=== PATIENT | male | born 1960 | race Caucasian/White ===

== ENCOUNTER 2019-08-19 10:44 | Outpatient (REF) | payer BC, SELFPAY ==
[2019-08-19 12:58] LABS: Anion Gap 9.7 mmol/L (3-11); BUN 10 mg/dL (7-18); CO2 31.3 mmol/L (21.0-32.0); CREATININE 1.01 mg/dL (0.70-1.30); Calcium 9.6 mg/dL (8.5-10.1); Chloride 98 mmol/L (98-107); Glucose 91 mg/dL (70-100); Potassium 3.7 mmol/L (3.5-5.1); Sodium 139 mmol/L (136-145)
== END 2019-08-19 11:04 ==
LOC: NCHCN 10:44
PROVIDERS: PCP Internal Medicine; Visit Provider Internal Medicine
DX: I10 Essential (primary) hypertension (principal)
CPT/HCPCS: 80048

== ENCOUNTER 2019-09-07 00:52 | Outpatient (CLI) | payer BC, SELFPAY ==
--- NOTE | 2019-09-07 07:30 | DI.US_ITS ---
APPROVED REPORT EXAM: Comprehensive 2D, Doppler, and color-flow Echocardiogram Patient Location: Out-Patient Cook Fry: Nuzhat Brandt [facility] ([place]) Rhythm: NSR Indications: ascending aortic aneurysm i71.2 Conclusion Left Ventricle : The left ventricle is top normal size. Mild left ventricular hypertrophy. The left v entricular systolic function is normal. There is normal LV segmental wall motion. The left ventricul ar diastolic function is normal. LVEF is estimated to be 60-65%. Right Ventricle : Right ventricle is generous in size. The right ventricular systolic function appear s normal. Atria : The left atrium size is normal. The right atrium size is normal. Aortic Valve : Aortic valve is trileaflet. Trace aortic regurgitation. There is no significant aortic valvular stenosis. Mitral Valve : The mitral valve opens well. Mild mitral regurgitation. No evidence of mitral valve st enosis. Tricuspid Valve : Tricuspid valve leaflets are very mildly thickened but open well. Mild tricuspid re gurgitation. Great Vessels : The ascending aorta is mildly dilated at 4.3-4.4 cm. The IVC appears mildly dilated, but seems to collapse more than 50%. The estimated RVSP is 27-30 mmHg. Compared to echocardiogram dated 01/13/2018, there is no significant change. Wall motion Left Ventricle The left ventricle is top normal size. The left ventricular systolic function is normal. Mild left ve ntricular hypertrophy. There is normal LV segmental wall motion. The left ventricular diastolic funct ion is normal. LVEF is estimated to be 60-65%. Right Ventricle Right ventricle is generous in size. The right ventricular systolic function appears normal. Atria The left atrium size is normal. The right atrium size is normal. Aortic Valve Aortic valve is trileaflet. There is no significant aortic valvular stenosis. Trace aortic regurgitat ion. Mitral Valve The mitral valve opens well. No evidence of mitral valve stenosis. Mild mitral regurgitation. Tricuspid Valve Tricuspid valve leaflets are very mildly thickened but open well. Mild tricuspid regurgitation. Pulmonic Valve Trace pulmonic regurgitation. Great Vessels The aortic root is normal in size. The ascending aorta is mildly dilated at 4.3 cm. The IVC appears m ildly dilated, but seems to collapse more than 50%. The estimated RVSP is 27-30 mmHg. Pericardium Prominent anterior epicardial fat pad is present. 2D Dimensions IVSd 1.35 cm M: 0.6-1.2 LV EDV A2C 60.70 mL PWd 1.10 cm M: 0.6 - 1.2 LV EDV A4C 77.90 mL LVDd 5.55 cm M: 4.2 - 5.8 LA Volume Index A2C 30.93 mL/m2 LVDs 3.60 cm M: 2.5 - 4.0 LA Volume Index A4C 26.96 mL/m2 Aortic Root 3.40 cm M: 3.1 - 3.7 LA Volume Index Biplane 31.11 mL/m2 RA Area A4C 17.39 cm2 LA Area A4C 19.00 cm2 LVOT 1.95 cm (M/F) 1.5-2.5 LA Area A2C 21.93 cm2 Ascending Aorta 4.34 cm M: 2.6 - 3.4 EF AP4 61.10 % LVEF (Teich) 63.12 % EF AP2 58.81 % LVEF (Gomez's) 60.16 % M: 52 - 72 EF BP 60.16 % LV Volume 51.96 mL M: 62 - 150 LV Volume Index 23.94 mL/m2 M: 34 - 74 FS 34.60 % LV Diastology E/A Ratio 0.9 MED E' 0.09 (>0.07 m/s) LV E/e MED 9.35 (<14) LAT E' 0.11 (>0.1 m/s) LV E/e LAT 7.55 (<14) Aortic Valve LVOT Area 3.03 cm2 LVOT Peak Jose Eduardo. 1.25 m/s LVOT Mean Jose Eduardo. 0.77 m/s LVOT Peak Gr. 6.60 mmHg NAZARIO Vmax Index 1.08 cm2/m2 LVOT Mean Gr. 2.90 mmHg LVOT VTI 0.25 m NAZARIO Mean Jose Eduardo. Index 0.96 cm2/m2 AoV Peak Jose Eduardo. 1.66 (0.5-1.3 m/s) AoV Mean Jose Eduardo. 1.11 m/s AO Peak GR. 11.05 mmHg AO Mean GR. 5.57 (<5 mmHg) VTI Ratio 0.84 NAZARIO (VTI) 2.56 (2.5-4.5 cm2) NAZARIO (VTI) Index 1.18 cm/m2 Mitral Valve MV E Max Jose Eduardo. 0.82 (0.4-1.3 m/s) MV A Velocity 0.90 (0.4-1.3 m/s) E/A Ratio 0.89 MV Decel. Time 204.45 (160-240 msec) MV PHT 59.30 msec MVA PHT 3.70 cm2 Tricuspid Valve TR P. Velocity 2.59 m/s TV Regurg Vmax 2.59 m/s RAP Estimate 8.00 mmHg RVSP 36.00 mmHg TR P. Gradient 26.85 mmHg
== END 2019-09-07 01:12 ==
PROVIDERS: PCP Internal Medicine; Visit Provider Internal Medicine
DX: I71.2 Thoracic aortic aneurysm, without rupture (principal); R07.9 Chest pain, unspecified; R00.0 Tachycardia, unspecified; I10 Essential (primary) hypertension; I35.1 Nonrheumatic aortic (valve) insufficiency
CPT/HCPCS: 93306

== ENCOUNTER 2020-09-11 10:19 | Outpatient (REF) | payer BC, SELFPAY ==
[2020-09-11 21:07] LABS: Anion Gap 7.2 mmol/L (3-11); BUN 10 mg/dL (7-18); CO2 30.8 mmol/L (21.0-32.0); CREATININE 1.14 mg/dL (0.70-1.30); Calcium 9.5 mg/dL (8.5-10.1); Chloride 100 mmol/L (98-107); Glucose 107 mg/dL (74-106); Sodium 138 mmol/L (136-145)
[2020-09-11 21:30] LABS: Hemoglobin A1C 5.3 % (<5.7)
== END 2020-09-11 10:39 ==
LOC: NCHCN 10:19
PROVIDERS: PCP Internal Medicine; Visit Provider Internal Medicine
DX: R73.03 Prediabetes (principal); I10 Essential (primary) hypertension
CPT/HCPCS: 80048; 83036

== ENCOUNTER 2020-09-27 00:20 | Outpatient (CLI) | payer BC, SELFPAY ==
--- NOTE | 2020-09-27 07:27 | DI.US_ITS ---
APPROVED REPORT EXAM: Comprehensive 2D, Doppler, and color-flow Echocardiogram Patient Location: Out-Patient Consulting Manager: Ofelia Joseph RDCS ([place]) Indications: Ascending aortic aneurysm Other Information Study Quality: Fair Conclusion Left Ventricle : The left ventricle is normal size. The left ventricular systolic function is normal. The left ventricular ejection fraction is within the normal range. There is normal left ventricular wall thickness. There is normal LV segmental wall motion. The left ventricular diastolic function is normal. LVEF is 55%. Right Ventricle : The right ventricle is normal size. The right ventricular systolic function is norm al. The RVSP is 27.1mmHg. Valves: There are no hemodynamically significant valvular lesions. Great Vessels : The aortic root is normal in size. The ascending aorta is dilated (4.4cm). Aortic arc h is normal in caliber. IVC is normal in size and collapses >50% with inspiration. Compared to study from 09/07/2019, there is no significant change. Wall motion Left Ventricle The left ventricle is normal size. The left ventricular systolic function is normal. The left ventric ular ejection fraction is within the normal range. There is normal left ventricular wall thickness. T here is normal LV segmental wall motion. The left ventricular diastolic function is normal. There is no ventricular septal defect visualized. LVEF is 55%. Right Ventricle The right ventricle is normal size. The right ventricular systolic function is normal. The RVSP is 27 .1mmHg. Atria The left atrium size is normal. The right atrium size is normal. The interatrial septum is intact wit h no evidence for an atrial septal defect. Aortic Valve The aortic valve is normal in structure. Aortic valve is trileaflet. There is no aortic valvular sten osis. No aortic regurgitation is present. Mitral Valve The mitral valve is normal in structure. No evidence of mitral valve stenosis. Trace to mild mitral r egurgitation. Tricuspid Valve The tricuspid valve is normal in structure. There is no tricuspid valve stenosis. Mild tricuspid regu rgitation. Pulmonic Valve The pulmonary valve is normal in structure. There is no pulmonic valvular stenosis. There is no pulmo libby valvular regurgitation. Great Vessels The aortic root is normal in size. The ascending aorta is dilated (4.4cm). Aortic arch is normal in c aliber. IVC is normal in size and collapses >50% with inspiration. Pericardium There is no pericardial effusion. 2D Dimensions IVSD d PLAX 1.15 cm M: 0.6-1.2 LV Vol A2C d MOD 119.2 mL LVPW d PLAX 1.11 cm M: 0.6 - 1.2 LV Vol A4C d MOD 134.8 mL LVID d PLAX 4.93 cm M: 4.2 - 5.8 LA vol/ BSA A2C s A-L 26.1 mL/m2 LVDs 3.45 cm M: 2.5 - 4.0 LA vol/ BSA A4C s A-L 20.6 mL/m2 Ao Root d 3.37 cm M: 3.1 - 3.7 LA Vol/ BSA Biplane s A-L 23.7 mL/m2 RA Area A4C 14.14 cm2 LA Area A4C s MOD 16.71 cm2 RA Vol/ BSA A4C s A-L 15.3 mL/m2 LA Area A2C s MOD 19.20 cm2 Ao Asc Diam d 4.41 cm M: 2.6 - 3.4 LV EF A4C MOD 55.1 % LV EF Teichholz 56.4 % LV EF A2C MOD 55.9 % LVEF (Gomez's) 55.64 % M: 52 - 72 LV EF Biplane MOD 55.6 % LV Volume 92.68 mL M: 62 - 150 SV 71.05 mL LV Volume Index 41.93 mL/m2 M: 34 - 74 SV Index 32.08 mL/m2 LV Vol Biplane MOD 127.7 mL FS 29.50 % M-Mode TAPSE 2.65 cm (M/F) >1.7 LV Diastology MV E' medial 0.097 (>0.07 m/s) E/A Ratio 1.0 LV E/e MED 8.35 (<14) MV E Vmax 0.81 (0.4-1.3 m/s) MV E' lateral 0.090 (>0.1 m/s) MV A Vmax 0.80 (0.4-1.3 m/s) LV E/e LAT 8.90 (<14) MV E/A Ratio 0.98 MV E/E' medial 8.35 MV E/E' lateral 8.92 Aortic Valve LVOT Area 3.66 cm2 AoV Area Vmax 3.05 cm2 LVOT Vmax 1.28 m/s AoV Area/ BSA (Vmax) 1.38 cm2/m2 LVOT Mean Jose Eduardo. 0.76 m/s NAZARIO Mean Jose Eduardo. 2.70 cm2 LVOT Peak Grad 6.5 mmHg NAZARIO Mean Jose Eduardo. Index 1.22 cm2/m2 LVOT Mean Grad 2.9 mmHg LVOT VTI 0.224 m LVOT Diam s 2.15 cm AoV Vmax 1.53 m/s Velocity Ratio 0.83 AoV Mean Jose Eduardo. 1.03 m/s AoV Peak Grad 9.4 mmHg LVOT SV 81.93 mL AoV Mean Grad 4.8 mmHg AoV VTI 0.273 m AoV Area VTI 3.00 cm2 AoV Area/ BSA (VTI) 1.35 cm/m2 Mitral Valve MV DT 204 (160-240 msec) MV PHT 59 msec MV Area PHT 3.71 cm2 MV VTI 0.269 m MV Area VTI 3.05 (4.0-6.0 cm2) Pulmonary Valve PV Vmax 1.07 (0.5-1.5 m/s) RVOT Peak Gr. 2.94 mmHg PV Peak Grad 4.6 mmHg RVOT Mean Gr. 1.55 mmHg PV Mean Grad 2.5 mmHg RVOT VTI 0.165 m PV VTI 0.213 m RVOT Vmax 0.86 m/s Tricuspid Valve TR Peak Grad 24.1 mmHg TR Vmax 2.46 m/s RA Pressure 3.00 mmHg RVSP (TR) 27.1 mmHg
== END 2020-09-27 00:40 ==
PROVIDERS: PCP Internal Medicine; Visit Provider Internal Medicine
DX: I77.810 Thoracic aortic ectasia (principal)
CPT/HCPCS: 93306

== ENCOUNTER 2021-03-06 10:56 | Outpatient (REF) | payer BC, SELFPAY ==
[2021-03-06 14:45] LABS: Hemoglobin A1C 5.4 % (<5.7)
[2021-03-06 15:09] LABS: Anion Gap 6.7 mmol/L (3-11); BUN 10 mg/dL (7-18); CO2 34.3 mmol/L (21.0-32.0); Calcium 9.6 mg/dL (8.5-10.1); Chloride 102 mmol/L (98-107); Glucose 105 mg/dL (74-106); Potassium 3.9 mmol/L (3.5-5.1); Sodium 143 mmol/L (136-145); TSH 1.39 uIU/mL (0.36-3.74); Vitamin B12 269 pg/mL (193-986)
[2021-03-07 12:12] LABS: Albumin 62.6 % (55.8-66.1); Total Protein 6.8 g/dL (6.3-8.2)
== END 2021-03-06 10:57 | disposition home or self-care (01) ==
LOC: NCHCN 10:56
PROVIDERS: PCP Internal Medicine; Visit Provider Internal Medicine
DX: G62.9 Polyneuropathy, unspecified (principal); I10 Essential (primary) hypertension; Z85.038 Personal history of other malignant neoplasm of large intestine; Z13.1 Encounter for screening for diabetes mellitus
CPT/HCPCS: 80048; 82607; 83036; 84165; 84443

== ENCOUNTER 2021-10-24 01:08 | Outpatient (CLI) | payer BC, SELFPAY ==
--- NOTE | 2021-10-24 | DI.US_ITS ---
APPROVED REPORT EXAM: Comprehensive 2D, Doppler, and color-flow Echocardiogram Patient Location: Out-Patient Headwaiter/Headwaitress: Ofelia Joseph RDCS ([place]) Indications: Ascending aortic aneurysm Other Information Study Quality: Adequate Conclusion Left Ventricle : The left ventricle is normal size. The left ventricular systolic function is normal. The left ventricular ejection fraction is within the normal range. There is normal left ventricular wall thickness. There is normal LV segmental wall motion. The left ventricular diastolic function is normal. LVEF is 55%. Right Ventricle : Right ventricle is grossly normal in size. The right ventricular systolic function is normal. The RVSP is 27.2mmHg. Atria : The left atrium size is normal. The right atrium size is normal. Mitral Valve : Mild mitral annular calcification. Mild mitral regurgitation. No evidence of mitral va lve stenosis. Great Vessels : The aortic root is normal in size. The ascending aorta is moderately dilated (4.5cm). Aortic arch is normal in caliber. IVC is normal in size and collapses >50% with inspiration. Wall motion Left Ventricle The left ventricle is normal size. The left ventricular systolic function is normal. The left ventric ular ejection fraction is within the normal range. There is normal left ventricular wall thickness. T here is normal LV segmental wall motion. The left ventricular diastolic function is normal. There is no ventricular septal defect visualized. LVEF is 55%. Right Ventricle Right ventricle is grossly normal in size. The right ventricular systolic function is normal. The RVS P is 27.2mmHg. Atria The left atrium size is normal. The right atrium size is normal. The interatrial septum is intact wit h no evidence for an atrial septal defect. Aortic Valve The Aortic valve is sclerotic. Aortic valve is trileaflet. There is no aortic valvular stenosis. No a ortic regurgitation is present. Mitral Valve Mild mitral annular calcification. No evidence of mitral valve stenosis. Mild mitral regurgitation. Tricuspid Valve The tricuspid valve is normal in structure. There is no tricuspid valve stenosis. Mild tricuspid regu rgitation. Pulmonic Valve The pulmonary valve is normal in structure. There is no pulmonic valvular stenosis. There is no pulmo libby valvular regurgitation. Great Vessels The aortic root is normal in size. The ascending aorta is moderately dilated (4.5cm). Aortic arch is normal in caliber. IVC is normal in size and collapses >50% with inspiration. Pericardium There is no pericardial effusion. 2D Dimensions IVSD d PLAX 1.10 cm M: 0.6-1.2 LV Vol A2C d MOD 110.2 mL LVPW d PLAX 1.14 cm M: 0.6 - 1.2 LV Vol A4C d MOD 116.7 mL LVID d PLAX 4.90 cm M: 4.2 - 5.8 LA vol/ BSA A2C s A-L 28.1 mL/m2 LVDs 3.35 cm M: 2.5 - 4.0 LA Area A2C s MOD 21.27 cm2 Ao Root d 3.28 cm M: 3.1 - 3.7 LV EF A4C MOD 55.1 % Ao Asc Diam d 4.48 cm M: 2.6 - 3.4 LV EF A2C MOD 55.4 % LV EF Teichholz 58.1 % LV EF Biplane MOD 55.5 % LVEF (Gomez's) 55.52 % M: 52 - 72 SV 64.21 mL LV Volume 83.93 mL M: 62 - 150 SV Index 28.99 mL/m2 LV Volume Index 37.97 mL/m2 M: 34 - 74 LV Vol Biplane MOD 115.7 mL FS 30.70 % M-Mode TAPSE 2.66 cm (M/F) >1.7 LV Diastology MV E' medial 0.082 (>0.07 m/s) E/A Ratio 1.1 LV E/e MED 11.10 (<14) MV E Vmax 0.91 (0.4-1.3 m/s) MV E' lateral 0.110 (>0.1 m/s) MV A Vmax 0.85 (0.4-1.3 m/s) LV E/e LAT 8.25 (<14) MV E/A Ratio 1.02 MV E/E' medial 11.12 MV E/E' lateral 8.28 Aortic Valve LVOT Area 3.57 cm2 AoV Area Vmax 3.22 cm2 LVOT Vmax 1.30 m/s AoV Area/ BSA (Vmax) 1.45 cm2/m2 LVOT Mean Jose Eduardo. 0.77 m/s NAZARIO Mean Jose Eduardo. 2.74 cm2 LVOT Peak Grad 6.7 mmHg NAZARIO Mean Jose Eduardo. Index 1.24 cm2/m2 LVOT Mean Grad 2.9 mmHg LVOT VTI 0.274 m LVOT Diam s 2.10 cm AoV Vmax 1.44 m/s Velocity Ratio 0.90 AoV Mean Jose Eduardo. 1.01 m/s AoV Peak Grad 8.3 mmHg LVOT SV 97.93 mL AoV Mean Grad 4.5 mmHg AoV VTI 0.298 m AoV Area VTI 3.29 cm2 AoV Area/ BSA (VTI) 1.48 cm/m2 Mitral Valve MV DT 198 (160-240 msec) MR Vmax 4.43 m/s MV PHT 57 msec MR VTI 1.388 m MV Area PHT 3.84 cm2 MR Peak Grad 78.6 mmHg MV VTI 0.341 m MR Mean Grad 50.3 mmHg MV VTI Annulus 0.324 m MR PISA Radius 0.35 cm MV Area VTI 2.74 (4.0-6.0 cm2) MR EROA 0.06 cm2 MR Aliasing Velocity 0.35 m/s MR PISA 0.77 cm2 Pulmonary Valve PV Vmax 1.03 (0.5-1.5 m/s) RVOT Peak Gr. 2.66 mmHg PV Peak Grad 4.2 mmHg RVOT Mean Gr. 1.40 mmHg PV Mean Grad 2.0 mmHg RVOT VTI 0.176 m PV VTI 0.197 m RVOT Vmax 0.81 m/s Tricuspid Valve TR Peak Grad 24.2 mmHg TR Vmax 2.46 m/s RA Pressure 3.00 mmHg RVSP (TR) 27.2 mmHg
== END 2021-10-24 01:28 ==
PROVIDERS: PCP Internal Medicine; Visit Provider Family Medicine
DX: I71.2 Thoracic aortic aneurysm, without rupture (principal); I34.0 Nonrheumatic mitral (valve) insufficiency
CPT/HCPCS: 93306

== ENCOUNTER 2021-11-05 03:11 | Outpatient (CLI) | payer BC, SELFPAY ==
[2021-11-05 10:49] LABS: Source Nasal/Nares
[2021-11-06 09:14] LABS: COVID-19 PCR Negative (Negative)
== END 2021-11-05 03:12 | disposition home or self-care (01) ==
PROVIDERS: PCP Internal Medicine; Visit Provider Surgery
DX: Z20.822 Contact with and (suspected) exposure to COVID-19 (principal)
CPT/HCPCS: 87635

== ENCOUNTER 2021-11-07 09:16 | Day surgery (SDC) | payer BC, SELFPAY ==
--- NOTE | 2021-11-06 10:32 | BOWEL_PTH ---
PATIENT: Calvin Morrison LOC: [facility] U#:[id number] AGE/SX: 61/M ROOM: RE11/07/[address]: Janet Martinez MD : [id number] BED: DIS: 11/07/2021 SPEC #: [id number] RECD: 11/07/21 12:33 STATUS: CASI REQ #: [id number] NACHO: 11/06/21 10:[address]: Janet Martinez DEPT: Surgical Specimen RECD BY: Germania Strange ENTERED: 11/07/21 12:33 SP TYPE: Bowel OTHR DR: Min Cantrell Tissues: 1 - BIOPSY BOWEL 2 - BIOPSY BOWEL Procedures: GROSS AND MICRO LEVEL 4 Comments: [id number]
--- NOTE | 2021-11-07 06:22 | W.PREOPHP ---
Assessment and Plan Assessment and plan (1) Screening for colon cancer: Status: Acute Assessment and plan: The patient is here for Colonoscopy pre-op. His last screening was in 2012 and was remarkable for multiple tubular adenoma's. He has no family history of colon cancer. He has not had any bowel habit changes. -Discussed colonoscopy bowel prep as well as the procedure. Discussed possible complications of the procedure to include bleeding, pain, perforation, missed small lesion/polyp, sore throat, aspiration and adverse reaction to the medications. Questions were answered to patient?s satisfaction. No guarantees were implied or given. Will hold aspirin x 5 days prior to his procedure. P// Colonoscopy under sedation (2) Personal history of colon cancer: Status: Acute History of Present Illness Narrative: 61 y/o male with history of rectosigmoid colon cancer (s/p resection, chemotherapy and radiation; 1999), HTN and peripheral neuropathy presents for colonoscopy screening pre-op. His last screening was in 2012, which was remarkable for mutliple tubular adenomas. He denies a family history of colon cancer. He denies any changes in bowel habits including bloody or black tarry stools, abdominal pain, diarrhea or constipation. He denies constitutional symptoms. Denies use of marijuana or any other recreational or illegal drugs. He denies chest pain, palpitations, dyspnea or dyspnea with exertion. He denies prior history or family history of adverse reactions or complications with anesthesia. The patient denies any history of stroke, [place], seizures, bleeding or clotting disorders. He reports having metal implanted in his left knee. No changes in his health since he was seen in the office Review of Systems Cardiovascular Cardiovascular: Denies chest pain, Denies chest pain at rest, Denies irregular heart rhythm, Denies dyspnea and Denies dyspnea on exertion Respiratory Respiratory: Denies cough, Denies dyspnea and Denies dyspnea on exertion Gastrointestinal Gastrointestinal: Reports as per HPI Genitourinary Genitourinary: Denies dysuria, Denies urinary incontinence and Denies urinary urgency Endocrine Endocrine: Reports system reviewed and no additional complaints, except as documented Hematologic/Lymphatic Hematologic/Lymphatic: Denies easy bruising and Denies lymphadenopathy PFSH All Active Problems Screening for colon cancer (Acute) Peripheral neuropathy (Acute) Personal history of colon cancer (Acute) Medical History Ascending aortic aneurysm F/U with PCP, pt states he had an ECHO on 10/24/20, was told things wer status quo and they didn't recommend anything further. Ceruminosis Erectile dysfunction Essential hypertension Former smoker History of rectal cancer Hyperglycemia Hyperlipidemia Obesity rectal cancer rectosigmoid junction Sinus tachycardia Sleep apnea Stress reaction Tubular adenoma Umbilical hernia Surgical History Colectomy Colonoscopy - IV Sedation (~2010) Colostomy placed 06/11/00 reversed 03/31/01 Hernia Repair, Incisional Hx of knee surgery (L) Knee x8 Family History Mother Personal history of malignant neoplasm Social History (Updated 09/24/21 @ 08:06 by AIDEE Nuñez) Smoking/Tobacco Use Status: Former Tobacco Use Quit Date: 10/13/88 Smoking risk assessment performed?: Yes Alcohol Intake: current Alcohol Intake frequency: 0-2 drinks per day Alcohol type: beer Drug use: Never Substance use type: does not use Do you feel safe at home: Yes Additional Social history: lives alone Meds Allergies and Home Medications Allergies Allergy/AdvReac Type Severity Reaction Status Date / Time lisinopril AdvReac Intermediate cough Verified 11/07/21 09:34 Home Medications Medication Instructions Recorded Confirmed Type aspirin [Aspirin Low-Strength] 81 mg PO DAILY tab-cap 05/04/13 11/07/21 History Metoprolol Succinate 25 mg PO DAILY tab-cap NS 05/11/18 11/07/21 History hydrochlorothiazide 37.5 mg PO DAILY tab-cap NS 05/11/18 11/07/21 History losartan 50 mg PO DAILY tab-cap NS 05/11/18 11/07/21 History sildenafil [Viagra] 50 mg PO DAILY tab-cap NS 05/11/18 11/07/21 History bisacodyl 5 mg tablet,delayed 5 mg PO ONCE #4 tab 09/21/21 11/07/21 Rx release polyethylene glycol 3350 17 238 g PO ONCE #238 g 09/21/21 11/07/21 Rx gram/dose oral powder Exam Const General: healthy appearing and comfortable Resp Effort & Inspection: normal respiratory effort Auscultation: clear to auscultation bilaterally Cardio Rate: regular rate Rhythm: regular rhythm Heart Sounds: no click, no gallops and no murmurs
--- NOTE | 2021-11-07 06:24 | COLE_ITS ---
Colonoscopy Report Date of procedure: 11/07/21 Pre-op diagnosis general: Hx of colon cancer and Hx of polyps Post-op diagnosis procedure note: same Procedure: Colonoscopy with polypectomy Surgeon: Janet Martinez Anesthesia Type: General:No Airway (Dada Gonzalez, MORENA) Estimated blood loss (mL): 3 Pathology: other (ascending polyp, sigmoid polyp) Complications: None Disposition: same day Indications: The patient is here for Colonoscopy pre-op. His last screening was in 2012 and was remarkable for multiple tubular adenoma's. He has no family history of colon cancer. He has not had any bowel habit changes. -Discussed colonoscopy bowel prep as well as the procedure. Discussed possible complications of the procedure to include bleeding, pain, perforation, missed small lesion/polyp, sore throat, aspiration and adverse reaction to the medications. Questions were answered to patient?s satisfaction. No guarantees were implied or given. P// Colonoscopy under sedation Prep: Miralax/Dulcolax Procedure Start Time: 10:20 Procedure End Time: 10:44 Retraction Time: 12 minutes Findings: 3 small sessile polyps Radiation proctitis Procedure Description: After informed consent was obtained the patient was taken to the procedure room and placed in a left decubitous position. Monitors were applied and a time out was done. The patients name, date of , procedure, allergies to medications and metal in their body was reviewed. The patient was then sedated. Once sedated and comfortable a rectal exam was done. External exam was normal. Internal exam revealed a normal sphincter tone and no palpable masses. The scope was then introduced and retro-flexed. No internal hemorrhoids, polyps or masses were identified on retro-flexion. The scope was then advanced to the cecum without difficulty. The ileocecal vlave and appendiceal orifice were identified. The prep was good. The scope was then slowly retracted over 12 minutes back into the rectum. Polyps were removed with cold forceps in the ascending colon x1 and the sigmoid colon x2. There was no diverticulosis noted. The scope was removed and the patient was woken up and taken back to Same day surgery in stable condition. The patient tolerated the procedure well and there were no immediate complicat ions. Follow up: The patient should follow up in 3 years unless they develop changes in bowel habits or other new gastrointestinal complaints.
--- NOTE | 2021-11-07 06:26 | W.PM.DSUDISC ---
Discharge Plan Disposition Patient Disposition: HOME Condition: Good Discharge Details Reason For Visit: Hx of colon cancer and polyps Attending Provider: Janet Martinez Primary Care Provider: Min Cantrell Home Meds and New Rx's Prescriptions: Continued aspirin [Aspirin Low-Strength] 81 MG tablet,chewable 81 mg PO DAILY RF: 0 losartan 50 MG tablet 50 mg PO DAILY RF: 0 sildenafil [Viagra] 50 MG tablet 50 mg PO DAILY RF: 0 hydrochlorothiazide 25 MG tablet 37.5 mg PO DAILY RF: 0 Metoprolol Succinate 25 MG TAB.ER.24H 25 mg PO DAILY RF: 0 Discontinued polyethylene glycol 3350 17 gram/dose powder 238 g PO ONCE Qty: 238 RF: 0 bisacodyl [Dulcolax (bisacodyl)] 5 mg tablet,delayed release (DR/EC) 5 mg PO ONCE Qty: 4 RF: 0 Discharge Instructions Additional Instructions: Findings: 3 small polyps inflammation from radiation Follow up: 3-5 years Please call if you develop: fevers >101.5 Nausea or Vomiting Abdominal pain that is not transient Rectal bleeding that is more then a tbsp A hard abdomen and inability to pass gas DAY SURGERY UNIT POST ENDOSCOPY INSTRUCTIONS Instructions for everyone who is given Anesthesia: For your safety, please do the following for the next 24 Hours: a. Do not drive or operate dangerous equipment b. Do not drink alcohol beverages or use any recreational drugs for the first 24 hours or while taking pain medications. The medications in your body may have a reaction that can be dangerous. c. Do not make any important decisions or sign any important papers 1. Generally there are no restrictions on your activity after a day or so has gone by, but you may feel a bit fatigued for a few days. 2. After you arrive home you may have a light meal and return to a normal diet as you can tolerate it without feeling sick to your stomach. 3. After surgery, you may feel pain or discomfort. This should be only transient, but if it persists please contact your doctor. 4. If there are any questions regarding the findings of your procedure, please feel free to contact your doctor. 6. If you are unable to contact your doctor with a problem, contact the hospital at [phone]. 7. Continue all your regular medications unless directed otherwise. I understand the above instructions and have no questions. Signature of Patient or Responsible Adult Escort Date/Time Name of Responsible Adult Escort Signature of Nurse Date/Time Activity:: Activity as Tolerated Diet:: As Tolerated Discharge Orders Discharge Orders: Discharge Order (Routine); Ordered 11/07/21 Ordered By: Janet Martinez DS: Diagnosis Discharge Diagnosis (1) Screening for colon cancer: Status: Acute (2) Personal history of colon cancer: Status: Acute
[2021-11-07 09:32] VITALS: BP 155/97; PULSE 101; RESP 16; TEMP 37.1; O2SAT 99
[2021-11-07] MEDS: Lactated Ringers 1,000 ML 80 ML IV (09:53)
--- NOTE | 2021-11-07 09:59 | W.ANESPRE ---
General Info Date of Service Date Performed: 11/07/21 Height: 5 ft 10 in Weight: 107.8 kg Body Mass Index (BMI): 34.1 Surgical Procedure: Operation Date: 11/07/21 10:20 Proposed Procedures Side Surgeon jessee Martinez MD Meds Allergies and Home Medications Allergies Allergy/AdvReac Type Severity Reaction Status Date / Time lisinopril AdvReac Intermediate cough Verified 11/07/21 09:34 Home Medication Medication Instructions Recorded aspirin [Aspirin Low-Strength] 81 mg PO DAILY tab-cap 05/04/13 Metoprolol Succinate 25 mg PO DAILY tab-cap NS 05/11/18 hydrochlorothiazide 37.5 mg PO DAILY tab-cap NS 05/11/18 losartan 50 mg PO DAILY tab-cap NS 05/11/18 sildenafil [Viagra] 50 mg PO DAILY tab-cap NS 05/11/18 bisacodyl 5 mg tablet,delayed 5 mg PO ONCE #4 tab 09/21/21 release polyethylene glycol 3350 17 238 g PO ONCE #238 g 09/21/21 gram/dose oral powder Current Visit Medications: Current Medications Generic Name Dose Route Start Last Admin Trade Name Freq PRN Reason Stop Dose Admin Hyoscyamine Sulfate 0.125 mg 11/07/21 06:26 Hyoscyamine 0.125 Mg Sl/Oral/Chew SL DIRECTED PRN Ringer's Solution 1,000 mls @ 80 mls/hr 11/07/21 06:00 11/07/21 09:53 IV 11/12/21 23:59 80 mls/hr INFUSION MACKENZIE Administration IV Miscellaneous Supplies 1 each 11/07/21 06:00 Iv Access IV 11/12/21 23:59 DIRECTED MACKENZIE Ondansetron HCl 4 mg 11/07/21 06:26 Ondansetron 4 Mg/2 Ml Vial IVP Q4H PRN PRN Nausea / Vomiting Sodium Chloride 0 ml 11/07/21 06:00 Normal Saline Flush 10 Ml Syr IV 11/12/21 23:59 PRN PRN Sodium Chloride 0 ml 11/07/21 06:00 Normal Saline 10 Ml Vial IJ 11/12/21 23:59 DIRECTED PRN Sterile Water 0 ml 11/07/21 06:00 Water,Injection,Sterile 10 Ml Vial IJ 11/12/21 23:59 DIRECTED PRN PFSH Active Problems Active Problems: Problem Status Onset Code Screening for colon cancer Z12.11 Peripheral neuropathy G62.9 Personal history of colon cancer Z85.038 Medical History Medical History Ascending aortic aneurysm F/U with PCP, pt states he had an ECHO on 10/24/20, was told things wer status quo and they didn't recommend anything further. Ceruminosis Erectile dysfunction Essential hypertension Former smoker History of rectal cancer Hyperglycemia Hyperlipidemia Obesity rectal cancer rectosigmoid junction Sinus tachycardia Sleep apnea Stress reaction Tubular adenoma Umbilical hernia Medical History Comments:: Pt. states he has always been told he had a narrow airway, so they usually try to avoid putting any tubes down there, they've always done spinals because they have had difficulty intubating me Surgical History Surgical History Colectomy Colonoscopy - IV Sedation (~2010) Colostomy placed 06/11/00 reversed 03/31/01 Hernia Repair, Incisional Hx of knee surgery (L) Knee x8 Tobacco Smoking/Tobacco Use Status: Former Tobacco Use Alcohol Alcohol Intake: current Alcohol intake frequency: 0-2 drinks per day Alcohol type: beer Substance Use Substance use: Never Substance use type: does not use Vital Signs and Lab Results Vital Signs Most Recent Vital Signs in EMR: Most Recent Vital Signs Temp Pulse Resp BP Pulse Ox 37.1 C 101 H 16 155/97 H 99 11/07/21 09:32 11/07/21 09:32 11/07/21 09:32 11/07/21 09:32 11/07/21 09:32 Lab Results Blood Type / Crossmatch: No Data to Display Complete Blood Count: No Data to Display Complete Metabolic Panel: No Data to Display Liver Function Panel: No Data to Display Coagulation Panel: No Data to Display Cardiac Panel: No Data to Display Arterial Blood Gas: No Data to Display Venous Blood Gas: No Data to Display Pancreas Panel: No Data to Display Thyroid Panel: No Data to Display Infectious Disease: Coronavirus (COVID-19)(PCR) Negative (Negative) 11/05/21 08:25 11/05/21 Coronavirus 2019 Source Nasal/Nares 11/05/21 08:25 11/05/21 Blood Cultures: No Data to Display Toxicology Panel: No Data to Display Anesthesia Assessment and Plan Anesthesia History Personal History: No History of Anesthesia Complications and Other ( Hx narrowed airway ) Family History: No Family History of Anesthesia Complications Exercise Tolerance Exercise Tolerance: Metabolic Equivalents>4 Pertinent Negatives Pertinent Negatives: No Symptoms of GERD, No Major Cardiovascular Symptoms or Complaints and No Major Pulmonary Symptoms or Complaints (ARISTEO always wears CPAP to sleep ) Cardiac & Pulmonary Exam Cardiac Exam: Normal S1/S2 Heart Sounds Pulmonary Exam: Clear Bilateral Breath Sounds Implantable Cardiac Device Does patient have a Pacemaker or an ICD?: No Airway Exam Known Difficult Airway: Yes Previous Airway Comments:: Hx ?narrowed airway? Mallampati Class: 4 Mouth Opening: Narrow (< 3cm) Thyromental Distance: Greater than 3 cm Facial Hair: Full [place] Neck Range of Motion: Full ROM Neck Circumference: Thick Teeth Condition: Normal Dentition Airway Comments: High angle narrow palate ASA Classification ASA Score: ASA 2 Emergency Case?: No NPO Status NPO Status: NPO Clears >2 hours, Solids >8 hours Anesthesia Plan Resuscitation Status: Full Code Anesthesia Technique: General Anesthesia Airway Planned: Natural Airway Monitors Used: Standard Monitors
[2021-11-07 10:03] VITALS: BMI 34.1
[2021-11-07 10:51] VITALS: BP 143/94; PULSE 95; RESP 22; TEMP 36.7; O2SAT 96
--- NOTE | 2021-11-07 10:51 | W.ANESPOSTOP ---
Postoperative Evaluation Date, Time and Location Date Performed: 11/07/21 Time Performed: 10:52 Patient Location: Day Surgery Unit Vital Signs Most Recent Imported Vital Signs: Most Recent Vital Signs Temp Pulse Resp BP Pulse Ox 37.1 C 101 H 16 155/97 H 99 11/07/21 09:32 11/07/21 09:32 11/07/21 09:32 11/07/21 09:32 11/07/21 09:32 Most Recent Manually Entered Vital Signs: Adult Blood Pressure: 143/94 Heart Rate: 95 Respirations: 10 Oxygen Saturation (%): 96 Temperature (C): 36.7 C Pain Score (0-10 Scale): 0 Pain Score Most Recent Pain Score: Most Recent Pain Score Pain Level 0 11/07/21 09:32 Assessment Mental Status: Awake (Alert & Oriented to Patient Baseline) Airway and Respiratory Function: Patent airway with normal (patient baseline) respiratory exam Cardiovascular Function: Hemodynamically Stable Hydration Status: Adequately Hydrated Nausea & Vomiting: No Nausea or Vomiting Pain: Pt. Denies Any Pain Peripheral Nerve Block: Patient did not receive a nerve block
[2021-11-07 10:53] VITALS: BP 143/94; PULSE 95; RESP 10; TEMPC 36.7; O2SAT 96
[2021-11-07 11:25] VITALS: BP 139/88; PULSE 98; RESP 20; TEMP 36.6; O2SAT 99
== END 2021-11-07 11:48 | disposition home or self-care (01) ==
LOC: SUR 09:16
PROVIDERS: PCP Family Medicine; Visit Provider Surgery
PROC: 0DJD8ZZ Inspection of Lower Intestinal Tract, Via Natural or Artificial Opening Endoscopic (ICD-10-PCS; CPT 45378; principal; 2021-11-07 10:15)
DX: Z12.11 Encounter for screening for malignant neoplasm of colon (principal); D12.2 Benign neoplasm of ascending colon; Z85.038 Personal history of other malignant neoplasm of large intestine; I10 Essential (primary) hypertension; R73.9 Hyperglycemia, unspecified; E78.5 Hyperlipidemia, unspecified; D12.5 Benign neoplasm of sigmoid colon
CPT/HCPCS: 45380; 88305; J2001

== ENCOUNTER 2022-03-20 09:39 | Outpatient (REF) | payer BC, SELFPAY ==
[2022-03-20 14:26] LABS: HCT 45.5 % (40.0-50.0); HGB 15.2 g/dL (13.5-17.5); MCH 30.3 pg (27.0-33.0); MCHC 33.4 % (32.0-36.0); MCV 91 fL (80-95); MPV 9.7 fL (8.0-11.0); Platelet Count 219 10^3/uL (130-400); RBC 5.01 10^6/uL (4.36-5.78); RDW 12.6 % (11.8-14.1); RDW-SD 41.7 fL; WBC 6.28 10^3/uL (4.4-10.8)
[2022-03-20 14:46] LABS: Anion Gap 9.1 mmol/L (3-11); BUN 14 mg/dL (7-18); CO2 29.9 mmol/L (21.0-32.0); CREATININE 1.1 mg/dL (0.70-1.30); Calcium 9.2 mg/dL (8.5-10.1); Chloride 102 mmol/L (98-107); Glucose 115 mg/dL (74-106); Potassium 4.1 mmol/L (3.5-5.1); Sodium 141 mmol/L (136-145)
[2022-03-21 10:23] LABS: HIV-1/2 Ag & Ab Screen Negative (Negative)
[2022-03-21 10:37] LABS: Hepatitis C Ab w Rflx HCV PCR Negative (Negative)
== END 2022-03-20 09:40 | disposition home or self-care (01) ==
LOC: NCHCN 09:39
PROVIDERS: PCP Family Medicine; Visit Provider Family Medicine
DX: I10 Essential (primary) hypertension (principal); F52.21 Male erectile disorder; Z11.4 Encounter for screening for human immunodeficiency virus [HIV]; Z11.59 Encounter for screening for other viral diseases
CPT/HCPCS: 80048; 85027; 86803; 87389

== ENCOUNTER 2022-12-04 11:20 | Outpatient (REF) | payer BC, SELFPAY ==
[2022-12-04 15:43] LABS: Abs Immature Grans 0.02 10^3/uL (0.0-0.06); Absolute Basophil Count 0.07 10^3/uL (0.0-0.2); Absolute Eosinophil Count 0.08 10^3/uL (0.0-0.7); Absolute Lymphocyte Count 1.14 10^3/uL (1.2-3.4); Absolute Monocyte Count 0.77 10^3/uL (0.1-0.8); Basophils % 0.8; HCT 45.6 % (40.0-50.0); HGB 15.4 g/dL (13.5-17.5); Immature Grans % 0.2; Lymphocytes % 13.6; MCH 29.7 pg (27.0-33.0); MCHC 33.8 % (32.0-36.0); MCV 88 fL (80-95); MPV 10.2 fL (8.0-11.0); Monocytes % 9.2; Neutrophils % 75.2; Platelet Count 302 10^3/uL (130-400); RBC 5.19 10^6/uL (4.36-5.78); RDW 11.9 % (11.8-14.1); RDW-SD 38.5 fL; WBC 8.38 10^3/uL (4.4-10.8)
[2022-12-04 15:59] LABS: ESR 22 mm/hr (0-20)
[2022-12-04 16:00] LABS: Anion Gap 8.8 mmol/L (3-11); BUN 16 mg/dL (7-18); CO2 28.2 mmol/L (21.0-32.0); Calcium 9.7 mg/dL (8.5-10.1); Chloride 104 mmol/L (98-107); Glucose 111 mg/dL (74-106); Potassium 3.9 mmol/L (3.5-5.1); Sodium 141 mmol/L (136-145); Uric Acid 6.9 mg/dL (3.5-7.2)
== END 2022-12-04 11:21 | disposition home or self-care (01) ==
LOC: NCHCN 11:20
PROVIDERS: PCP Family Medicine; Visit Provider Family Medicine
DX: M25.50 Pain in unspecified joint (principal); I10 Essential (primary) hypertension; R70.0 Elevated erythrocyte sedimentation rate
CPT/HCPCS: 80048; 85652; 84550; 85025

== ENCOUNTER → 2023-06-10 01:11 | Outpatient (CLI) | payer BC, SELFPAY ==
--- NOTE | 2023-06-10 11:22 | DI.US_ITS ---
APPROVED REPORT EXAM: Comprehensive 2D, Doppler, and color-flow Echocardiogram Patient Location: Out-Patient Carton Counter Feeder: Delmar Jimenez RDCS (AE) Indications: Ascending aortic aneurysm Other Information Study Quality: Adequate. Technically limited study due to body habitus. Conclusion Normal left ventricular wall thickness and chamber size. Ejection fraction is 55 to 60%. Wall motio n is normal Normal right ventricular size and systolic function Both atria are normal in size There is no structural or hemodynamically significant valvular disease Dilated ascending aorta measuring 4.5 cm. There is no interval change compared to October 2021 Wall motion Left Ventricle The left ventricle is normal size. The left ventricular systolic function is normal. The left ventric ular ejection fraction is within the normal range. There is normal left ventricular wall thickness. T here is normal LV segmental wall motion. There is no ventricular septal defect visualized. LVEF is 55 -60%. Right Ventricle The right ventricle is normal size. Right ventricular systolic function is grossly normal. The RVSP i s 31.8 mmHg. Atria The left atrium size is normal. The right atrium size is normal. The interatrial septum is intact wit h no evidence for an atrial septal defect. Aortic Valve The aortic valve is normal in structure. Aortic valve is trileaflet. There is no aortic valvular sten osis. No aortic regurgitation is present. Mitral Valve The mitral valve is normal in structure. No evidence of mitral valve stenosis. Mild mitral regurgitat ion. Tricuspid Valve The tricuspid valve is normal in structure. There is no tricuspid valve stenosis. Trace tricuspid reg urgitation. Pulmonic Valve Pulmonic valve is not well visualized. There is no pulmonic valvular regurgitation. Great Vessels The aortic root is normal in size. The ascending aorta is moderately dilated. Aortic arch is normal i n caliber. IVC is normal in size and collapses >50% with inspiration. Pericardium There is no pericardial effusion. 2D Dimensions IVSD d PLAX 0.96 cm M: 0.6-1.2 Ao Root d 3.63 cm M: 3.1 - 3.7 LVPW d PLAX 1.04 cm M: 0.6 - 1.2 Ao Asc Diam d 4.48 cm M: 2.6 - 3.4 LVID d PLAX 5.16 cm M: 4.2 - 5.8 LVDs 3.52 cm M: 2.5 - 4.0 LV EF Teichholz 59.4 % FS 31.73 % LV EDV (Teich) 127.4 mL LV ESV (Teich) 51.7 mL Stroke Vol Index (Teich) 39.60 M-Mode TAPSE 2.48 cm (M/F) >1.7 Auto EF LV EDV A4C 152.3 mL LV EDV A2C 127.9 mL LV EDV BP LV ESV A4C 68.6 mL LV ESV A2C 50.9 mL LV ESV BP LVEF(%) A4C 55.0 % LVEF(%) A2C 60.2 % LVEF(%) BP LV SV A4C 83.7 ml LV SV A2C 77.0 ml LV SV BP LV CO A4C 7.7 L/min LV CO A2C 7.0 L/min LV CO BP HR A4C 92.27 BPM HR A2C 91.14 BPM LV EDV Index (BP) LA Volume LA Length A4C 5.6 cm LA Length A2C LA Area A4C s 12.56 cm2 LA Area A2C s LA Vol A4C A-L 24.05 mL LA Vol A2C A-L LA Vol Biplane A-L LA Vol A4C MOD 23.3 mL LA Vol A2C MOD LA Vol BP MOD RA Volume RA Area A4C 13.8 cm2 RA ESV A4C (A-L) 32.9mL RA Vol/BSA A4C A-L RA Length A4C 4.9 cm RA ESV A4C (MOD) 30.8mL LV Diastology MV E' medial 0.108 (>0.07 m/s) MV E Vmax 0.87 (0.4-1.3 m/s) MV E/E' MED 8.12 (<14) MV A Vmax 0.85 (0.4-1.3 m/s) MV E' lateral 0.111 (>0.1 m/s) E/A Ratio 1.0 MV E/E' LAT 7.89 (<14) MV E' Average 0.109 m/s MV E/E'(average) 8.00 Aortic Valve AoV Vmax 1.62 m/s LVOT Vmax 1.25 m/s AoV Peak Grad 10.5 mmHg LVOT Peak Grad 6.3 mmHg AoV Area (Vmax) 2.96 cm2 LVOT VTI 0.209 m AoV VTI 0.294 m LVOT Mean Grad 3.7 mmHg AoV Mean Jose Eduardo. 1.09 m/s LVOT SV 79.82 mL AoV Mean Grad 5.3 mmHg LVOT Diam s 2.20 cm AoV Area (VTI) 2.71 cm2 Velocity Ratio 0.77 Mitral Valve MV DT 208 (160-240 msec) Pulmonary Valve PV Vmax 1.12 (0.5-1.5 m/s) RVOT Vmax 1.00 m/s PV Peak Grad 5.1 mmHg RVOT Peak Gr. 4.0 mmHg PV Mean Jose Eduardo 0.81 m/s RVOT VTI 0.174 m PV Mean Grad 2.9 mmHg RVOT Mean Gr. 2.1 mmHg Tricuspid Valve RA Pressure 3.00 mmHg TR Vmax 2.68 m/s TR Peak Grad 28.8 mmHg RVSP (TR) 31.8 mmHg
== END ==
PROVIDERS: PCP Family Medicine; Visit Provider Family Medicine
DX: I71.21 Aneurysm of the ascending aorta, without rupture (principal)
CPT/HCPCS: 93306

== ENCOUNTER 2023-07-04 14:12 | Outpatient (REF) | payer BC, SELFPAY ==
[2023-07-04 14:59] LABS: Vitamin B12 301 pg/mL (193-986)
== END 2023-07-04 14:13 | disposition home or self-care (01) ==
LOC: NCHCN 14:12
PROVIDERS: PCP Family Medicine; Visit Provider Family Medicine
DX: E53.8 Deficiency of other specified B group vitamins (principal); G62.9 Polyneuropathy, unspecified
CPT/HCPCS: 82607

== ENCOUNTER 2024-03-23 16:23 | Outpatient (CLI) | payer BC, SELFPAY ==
[2024-03-23 12:17] LABS: Vitamin B12 592 pg/mL (193-986)
== END 2024-03-23 16:24 | disposition home or self-care (01) ==
LOC: LBO 16:24
PROVIDERS: PCP Family Medicine; Visit Provider Psychiatry & Neurology Neurology
DX: G62.9 Polyneuropathy, unspecified (principal); E53.8 Deficiency of other specified B group vitamins
CPT/HCPCS: 36415; 82607

== ENCOUNTER 2024-05-03 09:05 | Outpatient (REF) | payer BC, SELFPAY ==
[2024-05-03 14:56] LABS: Anion Gap 8.8 mmol/L (3-11); BUN 11 mg/dL (7-18); CO2 31.2 mmol/L (21.0-32.0); Calcium 9.5 mg/dL (8.5-10.1); Chloride 101 mmol/L (98-107); Estimated GFR 84.05 (mL/min/1.73m2); Glucose 107 mg/dL (74-106); Potassium 3.7 mmol/L (3.5-5.1); Sodium 141 mmol/L (136-145)
[2024-05-03 15:05] LABS: Hemoglobin A1C 5.7 % (<5.7)
[2024-05-03 22:52] LABS: PSA, Screening 0.4 ng/mL (<=4.5)
== END 2024-05-03 09:06 | disposition home or self-care (01) ==
LOC: NCHCN 09:05
PROVIDERS: PCP Family Medicine; Visit Provider Family Medicine
DX: I10 Essential (primary) hypertension (principal); Z13.1 Encounter for screening for diabetes mellitus; Z12.5 Encounter for screening for malignant neoplasm of prostate
CPT/HCPCS: 80048; 84153; 83036

== ENCOUNTER 2025-05-05 10:21 | Outpatient (REF) | payer MEDICARE, BC, SELFPAY ==
[2025-05-05 14:58] LABS: Abs Immature Grans 0.02 10^3/uL (0.0-0.06); HCT 43.5 % (40.0-50.0); HGB 14.9 g/dL (13.5-17.5); Immature Grans % 0.3 %; MCH 29.3 pg (27.0-33.0); MCHC 34.3 % (32.0-36.0); MCV 86 fL (80-95); MPV 9.5 fL (8.0-11.0); Platelet Count 197 10^3/uL (130-400); RBC 5.08 10^6/uL (4.36-5.78); RDW 13.0 % (11.8-14.1); RDW-SD 40.2 fL; WBC 6.64 10^3/uL (4.4-10.8)
[2025-05-05 15:58] LABS: ALT 32 U/L (16-63); AST 27 U/L (15-37); Albumin 4.3 g/dL (3.4-5.0); Alkaline Phosphatase 105 U/L (46-116); Anion Gap 7.8 mmol/L (3-11); BUN 6 mg/dL (7-18); Bilirubin, Total 1.1 mg/dL (0.2-1.0); CO2 31.2 mmol/L (21.0-32.0); Calcium 9.6 mg/dL (8.5-10.1); Calculated LDL 106 mg/dL (<100); Chloride 93 mmol/L (98-107); Cholesterol 184 mg/dL (<200); Estimated GFR 98.21 (mL/min/1.73m2); Glucose 91 mg/dL (74-106); HDL Cholesterol 66 mg/dL (>or=40); Potassium 4.3 mmol/L (3.5-5.1); Sodium 132 mmol/L (136-145); Total Protein 7.2 g/dL (6.4-8.2); Triglyceride 61 mg/dL (<150)
== END 2025-05-05 10:22 | disposition home or self-care (01) ==
LOC: NCHCN 10:21
PROVIDERS: PCP Family Medicine; Visit Provider Family Medicine
DX: Z00.00 Encounter for general adult medical examination without abnormal findings (principal); I10 Essential (primary) hypertension
CPT/HCPCS: 80053; 80061; 85025

== ENCOUNTER 2025-06-03 01:08 | Outpatient (CLI) | payer MEDICARE, BC, SELFPAY ==
--- NOTE | 2025-06-03 08:30 | DI.US_ITS ---
APPROVED REPORT EXAM: Comprehensive 2D, Doppler, and color-flow Echocardiogram Patient Location: Out-Patient Clerical Production Worker: Delmar Jimenez RDCS (AE) Indications: Ascending aortic aneurysm Other Information Study Quality: Fair Conclusion Normal left ventricular wall thickness and chamber size. EF is 60%. Wall motion is normal Normal right ventricular size and function Both atria are normal in size Trileaflet aortic valve without stenosis or regurgitation Very mild mitral annular calcification. Mild mitral regurgitation Mild tricuspid regurgitation. Estimated right ventricular systolic pressure is 46 mmHg Ascending aorta measures 4. 5 4 cm Wall motion Left Ventricle The left ventricle is normal size. The left ventricular systolic function is normal. The left ventricular ejection fraction is within the normal range. There is normal left ventricular wall thickness. There is normal LV segmental wall motion. There is no ventricular septal defect visualized. LVEF is 60%. Right Ventricle The right ventricle is normal size. The right ventricular systolic function is normal. Atria The left atrium size is normal. The right atrium size is normal. The interatrial septum is intact with no evidence for an atrial septal defect. Aortic Valve The aortic valve is normal in structure. Aortic valve is trileaflet. There is no aortic valvular stenosis. No aortic regurgitation is present. Mitral Valve Mild mitral annular calcification. No evidence of mitral valve stenosis. Mild mitral regurgitation. Tricuspid Valve The tricuspid valve is normal in structure. There is no tricuspid valve stenosis. Mild tricuspid regurgitation. The RVSP is 46.2 mmHg. Pulmonic Valve The pulmonary valve is normal in structure. There is no pulmonic valvular stenosis. There is no pulmonic valvular regurgitation. Great Vessels The aortic root is normal in size. The ascending aorta is moderately dilated. Aortic arch is normal in caliber. IVC is normal in size and collapses >50% with inspiration. Pericardium There is no pericardial effusion. 2D Dimensions IVSD d PLAX 0.94 cm M: 0.6-1.2 Ao Root d 3.22 cm M: 3.1 - 3.7 LVPW d PLAX 0.88 cm M: 0.6 - 1.2 Ao Asc Diam d 4.54 cm M: 2.6 - 3.4 LVID d PLAX 5.03 cm M: 4.2 - 5.8 LVDs 3.59 cm M: 2.5 - 4.0 LV EF Teichholz 55.0 % FS 28.70 % LV EDV (Teich) 120.1 mL LV ESV (Teich) 54.1 mL Stroke Vol Index (Teich) 30.45 M-Mode TAPSE 2.38 cm (M/F) >1.7 Auto EF LV EDV A4C 142.1 mL LV EDV A2C 123.5 mL LV EDV BP 134.2 mL LV ESV A4C 63.5 mL LV ESV A2C 49.8 mL LV ESV BP 56.8 mL LVEF(%) A4C 55.3 % LVEF(%) A2C 59.7 % LVEF(%) BP 57.7 % LV SV A4C 78.6 ml LV SV A2C 73.7 ml LV SV BP 77.4 ml LV CO A4C 5.3 L/min LV CO A2C 4.6 L/min LV CO BP 5.0 L/min HR A4C 67.30 BPM HR A2C 63.05 BPM LV EDV Index (BP) LA Volume LA Length A4C 6.3 cm LA Length A2C 5.9 cm LA Area A4C s 16.16 cm2 LA Area A2C s 17.33 cm2 LA Vol A4C A-L 35.05 mL LA Vol A2C A-L 43.29 mL LA Vol Biplane A-L 40.4 mL LA Vol/BSA A4C A-L LA Vol/BSA A2C A-L LA Vol/BSA BP A-L 18.6 mL/m2 LA Vol A4C MOD 34.3 mL LA Vol A2C MOD 41.9 mL LA Vol BP MOD 39.2 mL RA Volume RA Area A4C 12.6 cm2 RA ESV A4C (A-L) 26.6mL RA Vol/BSA A4C A-L RA Length A4C 5.1 cm RA ESV A4C (MOD) 25.2mL LV Diastology MV E' medial 0.092 (>0.07 m/s) MV E Vmax 1.01 (0.4-1.3 m/s) MV E/E' MED 10.96 (<14) MV A Vmax 1.00 (0.4-1.3 m/s) MV E' lateral 0.118 (>0.1 m/s) E/A Ratio 1.0 MV E/E' LAT 8.52 (<14) MV E' Average 0.105 m/s MV E/E'(average) 9.59 Aortic Valve AoV Vmax 1.43 m/s LVOT Vmax 1.13 m/s AoV Peak Grad 8.2 mmHg LVOT Peak Grad 5.1 mmHg AoV Area (Vmax) 2.56 cm2 LVOT VTI 0.280 m AoV VTI 0.326 m LVOT Mean Grad 2.6 mmHg AoV Mean Jose Eduardo. 0.93 m/s LVOT SV 90.99 mL AoV Mean Grad 4.1 mmHg LVOT Diam s 2.00 cm AoV Area (VTI) 2.79 cm2 AV Regurg Peak Gr. 8.23 mmHg Velocity Ratio 0.79 Mitral Valve MV DT 219 (160-240 msec) Pulmonary Valve PV Vmax 1.15 (0.5-1.5 m/s) RVOT Vmax 0.66 m/s PV Peak Grad 5.3 mmHg RVOT Peak Gr. 1.7 mmHg PV Mean Jose Eduardo 0.74 m/s RVOT VTI 0.163 m PV Mean Grad 2.5 mmHg RVOT Mean Gr. 1.0 mmHg Tricuspid Valve RA Pressure 3.00 mmHg TR Vmax 3.29 m/s TR Peak Grad 43.1 mmHg RVSP (TR) 46.2 mmHg
== END 2025-06-03 01:28 ==
PROVIDERS: PCP Family Medicine; Visit Provider Internal Medicine Cardiovascular Disease
DX: I71.21 Aneurysm of the ascending aorta, without rupture (principal); I08.3 Combined rheumatic disorders of mitral, aortic and tricuspid valves
CPT/HCPCS: 93306